=== PATIENT | male | born 1945 | race Caucasian/White ===

== ENCOUNTER 2018-11-26 07:00 | Outpatient (CLI) | payer OTHER, SELFPAY ==
[2018-11-26 08:30] LABS: Anion Gap 11.2 mmol/L (3-11); BUN 18 mg/dL (7-18); CO2 26.8 mmol/L (21.0-32.0); CREATININE 1.01 mg/dL (0.70-1.30); Calcium 9.1 mg/dL (8.5-10.1); Chloride 103 mmol/L (98-107); Glucose 116 mg/dL (70-100); Potassium 3.6 mmol/L (3.5-5.1); Sodium 141 mmol/L (136-145)
[2018-11-29 10:13] LABS: PSA, Screening 3.8 ng/ml (0-6.5)
== END 2018-11-26 07:20 ==
PROVIDERS: PCP Emergency Medicine; Visit Provider Emergency Medicine
DX: N40.0 Benign prostatic hyperplasia without lower urinary tract symptoms (principal); I10 Essential (primary) hypertension; Z12.5 Encounter for screening for malignant neoplasm of prostate
CPT/HCPCS: 36415; 80048; 84153

== ENCOUNTER 2018-12-18 08:59 | Emergency (ER) | payer OTHER, SELFPAY ==
[2018-12-18 09:02] VITALS: BP 129/79; PULSE 96; RESP 18; TEMP 36.7; O2SAT 95
--- NOTE | 2018-12-18 09:05 | ED.GENADUL_ITS ---
Discharge Plan Disposition Patient Disposition: HOME Condition: Stable Discharge Details Chief Complaint: AnimalBite Clinical Impression: Rash, Cellulitis Primary Care Provider: Samir Schroeder ED Provider: Angela Gomez Home Meds and New Rx's Prescriptions: New doxycycline hyclate 100 mg tablet 100 mg PO BID 7 Days Qty: 14 RF: 0 prednisone 20 mg tablet See Rx Instructions .ROUTE .COMPLEX Qty: 12 RF: 0 Continued sildenafil [Viagra] 100 MG tablet 100 mg PO DAILY Qty: 1 RF: 12 hydrochlorothiazide 25 mg tablet 25 mg PO DAILY Qty: 90 RF: 4 tamsulosin [Flomax] 0.4 mg capsule 0.4 mg PO HS Qty: 90 RF: 4 ibuprofen 200 MG tablet 400 mg PO TID PRNRF: 0 Discharge Instructions Instructions: Cellulitis (ED), Acute Rash (ED) Additional Instructions: Take Benadryl as needed and directed for any itching. Apply topical cortisone to the area twice daily. Take the antibiotics until finished. If you have no relief in symptoms in the next 2 days, start the oral steroids. Follow-up with your primary care doctor in 3 days for reevaluation. Return immediately to the emergency department if you develop any worsening or new concerning symptoms such as fever, increased pain, redness or swelling. Discharge Data Discharge Physician: Angela Gomez Medical Decision Making 73-year-old male who is one-week status post right forearm dog bite who presents with redness and swelling to right hand and forearm for the past 4 days. 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 Patient appears nontoxic. There are 2 areas of erythema noted to right distal extremity, 1 at base of right thumb with minimal edema and one distal medial forearm. There are 2 dog bites on the proximal forearm without any surrounding redness so it is unlikely that these are related. Negative Johanna's test. He has no significant pain, and does admit to itching, so the differential diagnosis includes contact dermatitis, allergic reaction, early cellulitis, less likely gout. Does not appear consistent with erythema migrans, no bull's-eye rash, no history of fever or embedded tick. Patient has an allergy to penicillin which causes diffuse hives. Will treat with doxycycline to cover for possible animal bite/cellulitis. Patient declined an x-ray to evaluate for possible foreign body. Advised to apply cortisone to the area twice daily. Will send with a prescription for oral steroids if there is no relief in symptoms in the next 2 days. Advised to follow-up with the primary care doctor for evaluation and to return here anytime if worse HPI General Mode of arrival: ambulatory . Date/Time Provider Initiated Documentation: 12/18/18 09:02 . Limitations to Documentation: no limitations . Information obtained by: patient . HPI Narrative: Patient is a 73-year-old male with a history of BPH, hypertension who presents for rash to his right forearm and hand for the past 4 days. Patient states he was bitten by a neighbor's dog in his right forearm 1 week ago. States the dog is up-to-date on his shots. stated that she noted a rash to his right forearm starting several days later and thought it was possibly a contact dermatitis and not due to the dog bite. He states since then it has spread to his right hand this morning. He denies any significant pain and states it is mainly itchy and feels swollen. He denies any fever, chest pain, shortness of breath, new meds or exposures, or other known possible bites. He states he had a tick bite 2 months ago which was treated for possible Lyme disease by his PCP. He states he was not tested for Lyme at that time. Related Data Home Medications Medication Instructions Recorded Confirmed ibuprofen 400 mg PO TID PRN 09/06/13 12/18/18 sildenafil [Viagra] 100 mg PO DAILY #1 tab-cap 10/20/12/18/18 hydrochlorothiazide 25 mg tablet 25 mg PO DAILY #90 tab-cap 10/06/18 12/18/18 tamsulosin 0.4 mg capsule 0.4 mg PO HS #90 tab 10/06/18 12/18/18 doxycycline hyclate 100 mg PO BID 7 Days #14 tab 12/18/18 prednisone See Rx Instructions .ROUTE 12/18/18 .COMPLEX #12 tab Previous Rx's Medication Instructions Recorded hydrochlorothiazide 25 mg tablet 25 mg PO DAILY #90 tab-cap 10/06/18 tamsulosin 0.4 mg capsule 0.4 mg PO HS #90 tab 10/06/18 doxycycline hyclate 100 mg PO BID 7 Days #14 tab 12/18/18 prednisone See Rx Instructions .ROUTE 12/18/18 .COMPLEX #12 tab Allergies Allergy/AdvReac Type Severity Reaction Status Date / Time Penicillins Allergy Unknown SKIN RASH Verified 12/18/18 09:10 metronidazole AdvReac Intermediate Nausea Verified 12/18/18 09:10 Review of Systems Review of Systems All systems reviewed & are unremarkable except as noted in HPI and below Constitutional Reports as per HPI, Denies chills and Denies fever(s) Eyes Denies blurry vision ENT Denies dizziness, Denies sore throat and Denies throat swelling Cardiovascular Denies chest pain and Denies dyspnea Respiratory Denies cough and Denies dyspnea Gastrointestinal Denies abdominal pain, Denies diarrhea and Denies vomiting Genitourinary Denies hematuria and Denies dysuria Musculoskeletal Denies back pain and Denies numbness Integumentary/Breasts Denies lesions and Reports rash Neurologic Denies dizziness, Denies focal weakness and Denies numbness Allergic/Immunologic Denies throat swelling [facility] Medical History 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 Maternal Grandfather Heart disease Maternal Grandmother Heart disease Paternal Grandmother Stroke Brother Essential hypertension Son No problems noted. Son No problems noted. Brother No problems noted. Social History Smoking/Tobacco Use Status: Never Alcohol Intake: never Drug use: Never Substance use type: does not use Caregiver/Support person: No Household members: spouse Pets and animals: Yes Pets and animals: dog(s) Sexually active: Yes Do you think of yourself as: straight/heterosexual Current gender identity: male What is your relationship status?: How often do you talk on the phone with friends or family?: three or more times per week How often do you get together with friends or relatives?: three or more times per week How often do you attend spiritism or methodist services?: decline to answer Do you belong to any clubs or organized social groups?: decline to answer Panel score (0-1 are the most socially isolated patients): 2 What type of physical activity do you participate in: walking Duration: 15-30 minutes/day Frequency: 3-4 times per week Jessica/Nondenominational: Quaker Special jessica needs: No Seatbelt use: always Drive intox or ride w/intox transit bus driver: No Do you feel safe at home: Yes Do you feel safe in your relationship?: Yes Exam Const General: cooperative, healthy appearing and no acute distress HENMT Head: normal to inspection Mouth: oral mucosae normal Eyes General: appearance normal, both eyes and all related structures Neck Neck: normal visual inspection Resp Effort & Inspection: normal respiratory effort and able to speak in complete sentences Cardio Rate: regular rate Neuro General: alert, awake and oriented x3 Motor: muscle tone normal throughout Extrem General: normal to inspection and full ROM Elbow/forearm/wrist images: 1. Irregularly shaped area of erythema with faint borders w/o induration, fluctuance or tenderness to palpation. There is minimal scaling. 2. Area of erythema and minimal edema at base of R thumb extending onto palmar surface. No tenderness, induration, fluctuance, lesions, papules. Negative Johanna test. Other: R radial and ulnar pulses intact. Cap refill < 2 sec. Psych Appearance: grossly normal Affect: normal affect
--- NOTE | 2018-12-18 10:48 | NUR.NOTE ---
Animal bite for faxed to [facility] Officer Rufino Alatorre [phone].Nursing Note:
== END 2018-12-18 09:45 | disposition home or self-care (01) ==
LOC: ER 09:34
PROVIDERS: Emergency Provider Physician Assistant; PCP Emergency Medicine
DX: L03.113 Cellulitis of right upper limb (principal); S61.451A Open bite of right hand, initial encounter; W54.0XXA Bitten by dog, initial encounter; I10 Essential (primary) hypertension
CPT/HCPCS: 99283

== ENCOUNTER → 2019-01-13 15:00 | Outpatient (BNVA) | payer OTHER, SELFPAY | PROVIDERS: PCP Emergency Medicine; Referring Provider Emergency Medicine; Visit Provider Physical Therapy Assistant | DX: Z12.11 Encounter for screening for malignant neoplasm of colon (principal) ==

== ENCOUNTER 2019-01-19 08:18 | Day surgery (SDC) | payer OTHER, SELFPAY ==
[2019-01-19 08:47] VITALS: BP 129/84; PULSE 69; RESP 16; TEMP 36.1; O2SAT 98
[2019-01-19] MEDS: Lactated Ringers 1,000 ML 80 ML IV (09:08)
--- NOTE | 2019-01-19 09:33 | W.PM.DSUDISC ---
Discharge Plan Disposition Patient Disposition: HOME Condition: Good Discharge Details Reason For Visit: Colonoscopy Attending Provider: Bebe Ann Primary Care Provider: Samir Schroeder Home Meds and New Rx's Prescriptions: Continued hydrochlorothiazide 25 mg tablet 25 mg PO DAILY Qty: 90 RF: 4 tamsulosin [Flomax] 0.4 mg capsule 0.4 mg PO HS Qty: 90 RF: 4 ibuprofen 200 MG tablet 400 mg PO TID PRNRF: 0 acetaminophen [Tylenol Extra Strength] 500 mg Tablet 1,000 mg PO Q4H PRNRF: 0 Discontinued polyethylene glycol 3350 17 gram/dose powder 238 g PO ONCE Qty: 238 RF: 0 bisacodyl [Dulcolax (bisacodyl)] 5 mg tablet,delayed release (DR/EC) 5 mg PO ONCE Qty: 4 RF: 0 Discharge Instructions Additional Instructions: Findings: Your colonoscopy showed mild diverticulosis. Make sure to take in 30 grams of fiber daily. Follow up: Consider a screening colonoscopy in 10 years depending on your overall health or sooner if symptoms arise. Please call if you develop: fevers >101.5 Nausea or Vomiting Abdominal pain that is not transient DAY SURGERY UNIT POST COLONOSCOPY INSTRUCTIONS 1. Because there will be medication in your system for the next 24 hours, you may feel a little sleepy. Your coordination will be affected. Therefore: a. Do not drive or operate dangerous equipment for 24 hours. b. Do not drink alcohol beverages for 24 hours (not even beer). c. Plan to go home and rest for the day. 2. Generally there are no restrictions on your activity after a day or so has gone by, but you may feel a bit fatigued for a few days. 3 After you arrive home you may have a light meal and return to a normal diet as you can tolerate it without feeling sick to your stomach. 4. After surgery, you may feel pain or discomfort. This should be only transient, but if it persists please contact your doctor. 5. If there are any questions regarding the findings of your procedure, please feel free to contact your doctor. 6. If you are unable to contact your doctor with a problem, contact the hospital at [phone]. 7. Continue all your regular medications unless directed otherwise. I understand the above instructions and have no questions. Signature of Patient or Responsible Adult Escort Date/Time Name of Responsible Adult Escort Signature of Nurse Date/Time Activity:: Activity as Tolerated Diet:: As Tolerated Discharge Orders Discharge Orders: Discharge Order (Routine); Ordered 01/19/19 Ordered By: Bebe Ann DS: Diagnosis Discharge Diagnosis (1) Diverticulosis: Status: Acute
[2019-01-19 10:40] VITALS: BP 134/87; PULSE 63; RESP 17; TEMP 36.4; O2SAT 96
--- NOTE | 2019-01-19 11:13 | COLE_ITS ---
REPORT OF OPERATIVE PROCEDURE DATE OF PROCEDURE January 19, 2019 PREOPERATIVE DIAGNOSIS Screening. POSTOPERATIVE DIAGNOSIS Mild diverticulosis. PROCEDURE Colonoscopy. SURGEON Bebe Ann M.D. ANESTHESIA General. INDICATIONS This is a 73-year-old man whose last screening colonoscopy was in 2006. He is asymptomatic and has no family history of colon cancer. PROCEDURE DESCRIPTION He was placed in the left Interiano position. Propofol was titrated to sedation. Digital rectal examinatio n revealed no abnormities. The scope was advanced to the cecum without difficulty. The ileocecal valv e and the appendiceal orifice were clearly identified. His prep was excellent. The scope with slowly withdrawn with no abnormalities seen within the ascending, transverse or descending colon. The sigmoi d region revealed mild diverticular change. The rectum was normal including on retroflexed view. He t olerated the procedure well and was stable to Recovery. He can consider a followup screening again in 10 years depending on his overall health or sooner if s ymptoms indicate. CC: Samir Schroeder D.O.
== END 2019-01-19 11:20 | disposition home or self-care (01) ==
PROVIDERS: PCP Emergency Medicine; Visit Provider Surgery
PROC: 0DJD8ZZ Inspection of Lower Intestinal Tract, Via Natural or Artificial Opening Endoscopic (ICD-10-PCS; CPT 45378; principal; 2019-01-19 10:00)
DX: Z12.11 Encounter for screening for malignant neoplasm of colon (principal); K57.30 Diverticulosis of large intestine without perforation or abscess without bleeding; I10 Essential (primary) hypertension
CPT/HCPCS: G0121

== ENCOUNTER 2019-11-23 18:19 | Outpatient (REF) | payer OTHER, SELFPAY ==
[2019-11-23 21:14] LABS: Anion Gap 11.2 mmol/L (3-11); BUN 23 mg/dL (7-18); CO2 27.8 mmol/L (21.0-32.0); CREATININE 1.26 mg/dL (0.70-1.30); Calcium 9.3 mg/dL (8.5-10.1); Chloride 102 mmol/L (98-107); Glucose 160 mg/dL (74-106); Potassium 3.2 mmol/L (3.5-5.1); Sodium 141 mmol/L (136-145)
== END 2019-11-23 18:39 ==
LOC: LBN 18:19
PROVIDERS: PCP Emergency Medicine; Visit Provider Emergency Medicine
DX: I10 Essential (primary) hypertension (principal); Z87.19 Personal history of other diseases of the digestive system; Z98.890 Other specified postprocedural states; Z00.00 Encounter for general adult medical examination without abnormal findings
CPT/HCPCS: 80048

== ENCOUNTER 2019-12-16 03:19 | Outpatient (CLI) | payer OTHER, SELFPAY ==
[2019-12-16 12:31] LABS: Anion Gap 9.9 mmol/L (3-11); BUN 17 mg/dL (7-18); CO2 28.1 mmol/L (21.0-32.0); CREATININE 1.17 mg/dL (0.70-1.30); Calcium 9.3 mg/dL (8.5-10.1); Chloride 103 mmol/L (98-107); Glucose 148 mg/dL (74-106); Potassium 3.5 mmol/L (3.5-5.1); Sodium 141 mmol/L (136-145)
[2019-12-16 12:48] LABS: Hemoglobin A1C 6.1 % (3.8-5.6)
== END 2019-12-16 03:39 ==
PROVIDERS: PCP Emergency Medicine; Visit Provider Emergency Medicine
DX: I10 Essential (primary) hypertension (principal); R73.09 Other abnormal glucose; R89.9 Unspecified abnormal finding in specimens from other organs, systems and tissues
CPT/HCPCS: 36415; 80048; 83036

== ENCOUNTER 2020-04-10 17:57 | Emergency (ER) | payer OTHER, SELFPAY ==
[2020-04-10 18:05] VITALS: BP 155/78; PULSE 76; RESP 16; TEMP 36.4; O2SAT 98
[2020-04-10] MEDS: Lidocaine 1% Multi-Dose 50 ML VIAL IJ (18:27)
[2020-04-10] MEDS: Lidocaine/Epinephri/Tetracaine Topical Gel 3 ML TP (18:29)
--- NOTE | 2020-04-10 18:48 | ED.GENADUL_ITS ---
Discharge Plan Disposition Patient Disposition: HOME Condition: Stable Discharge Details Clinical Impression: Laceration Primary Care Provider: Samir Schroeder ED Provider: Alejandra Anaya Home Meds and New Rx's Prescriptions: No Action aspirin [Adult Low Dose Aspirin] 81 mg tablet,delayed release (DR/EC) 81 mg PO DAILY Qty: 90 RF: 3 pravastatin 20 mg tablet 20 mg PO DAILY Qty: 90 RF: 3 hydrochlorothiazide 25 mg tablet 25 mg PO DAILY Qty: 90 RF: 4 tamsulosin [Flomax] 0.4 mg capsule 0.4 mg PO HS Qty: 90 RF: 4 ibuprofen 200 MG tablet 400 mg PO TID PRNRF: 0 acetaminophen [Tylenol Extra Strength] 500 mg Tablet 1,000 mg PO Q4H PRNRF: 0 Discharge Instructions Instructions: Laceration (ED) Additional Instructions: Keep dressing clean and dry for the first 24 to 48 hours then can remove daily wash with warm soapy water rinse completely dry well and apply thin layer of bacitracin or Neosporin ointment and cover with Band-Aid to protect Return for signs of infection including increased redness fever drainage pain Otherwise return in 7 to 10 days for suture removal Referrals: [facility] Emergency Dept. [Outside] (7 to 10 days for suture removal) Medical Decision Making updated tetanus Wound closed using 4 sutures wound edges well approximated cleansed by nursing bacitracin and nonstick dressing applied Wound care instructions given Medical Records Medical records reviewed: Yes I reviewed the patient's medical records. HPI General Date/Time Provider Initiated Documentation: 04/10/20 17:59 . Limitations to Documentation: no limitations . Information obtained by: patient . HPI Narrative: Laceration to area between left thumb and index finger approximately 3 cm's occurred while working approximately 4 hours ago. He washed the wound out with hydrogen peroxide and dressed to protect after work came for laceration repair. His last tetanus was in 2012 no other injury he has full range of motion to his full sensation distally no bleeding wound is clean Related Data Home Medications Medication Instructions Recorded Confirmed ibuprofen 400 mg PO TID PRN 09/06/13 04/10/20 acetaminophen [Tylenol Extra 1,000 mg PO Q4H PRN 01/19/19 04/10/20 Strength] hydrochlorothiazide 25 mg tablet 25 mg PO DAILY #90 tab-cap 10/25/19 04/10/20 tamsulosin 0.4 mg capsule 0.4 mg PO HS #90 tab 10/25/19 04/10/20 aspirin 81 mg tablet,delayed 81 mg PO DAILY #90 tab 01/06/20 04/10/20 release pravastatin 20 mg tablet 20 mg PO DAILY #90 tab 01/06/20 04/10/20 Previous Rx's Medication Instructions Recorded hydrochlorothiazide 25 mg tablet 25 mg PO DAILY #90 tab-cap 10/25/19 tamsulosin 0.4 mg capsule 0.4 mg PO HS #90 tab 10/25/19 aspirin 81 mg tablet,delayed 81 mg PO DAILY #90 tab 01/06/20 release pravastatin 20 mg tablet 20 mg PO DAILY #90 tab 01/06/20 Allergies Allergy/AdvReac Type Severity Reaction Status Date / Time Penicillins Allergy Unknown SKIN RASH Verified 04/10/20 18:08 metronidazole AdvReac Intermediate Nausea Verified 04/10/20 18:08 General Stated Complaint: Laceration MICHELE: 4 Review of Systems Musculoskeletal Musculoskeletal: Denies deformity, Denies joint swelling, Denies limited range of motion and Denies numbness Integumentary/Breasts Skin/Breast: Denies rash and Reports wounds (Laceration) Neurologic Neurologic: Denies numbness [facility] Medical History (Updated 04/10/20 @ 18:50 by Alejandra Anaya NP) 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 2007-NEG 01/19/19 - Diverticulosis H/O right inguinal hernia repair (10/12/13) History of tonsillectomy Family History Mother Diabetes Heart disease Father , 75 Essential hypertension Cancer Brother No problems noted. Maternal Grandfather Heart disease Maternal Grandmother , 92 Heart disease Paternal Grandmother , 65 Stroke Brother Essential hypertension Son No problems noted. Son No problems noted. Brother No problems noted. Social History (Updated 11/28/19 @ 10:12 by Lianne Sandhu) Smoking/Tobacco Use Status: Never Smoking risk assessment performed?: Yes Alcohol Intake: never Drug use: Never Substance use type: does not use Caregiver/Support person: No Household members: spouse Communication Needs: Corrective Lenses Do you need help understanding health information?: Never Pets and animals: Yes Pets and animals: dog(s) Sexually active: Yes Do you think of yourself as: straight/heterosexual Current gender identity: male What is your relationship status?: How often do you talk on the phone with friends or family?: three or more times per week How often do you get together with friends or relatives?: three or more times per week How often do you attend rastafarian or catholic services?: decline to answer Do you belong to any clubs or organized social groups?: decline to answer Panel score (0-1 are the most socially isolated patients): 2 What type of physical activity do you participate in: walking Duration: 15-30 minutes/day Frequency: 3-4 times per week Jessica/Sabianism: Christianity Special jessica needs: No Seatbelt use: always Helmet use: No Drive intox or ride w/intox city bus driver: No Do you feel safe at home: Yes Do you feel safe in your relationship?: Yes Exam Skin Rashes: rash noted Trauma: laceration Full body images: 1. 3 cm laceration Course Vital Signs Vital signs: Vital Signs Temperature 36.4 C L 04/10/20 18:05 Pulse 76 04/10/20 18:05 Respiratory Rate 16 04/10/20 18:05 Blood Pressure 155/78 H 04/10/20 18:05 Pulse Oximetry 98 04/10/20 18:05 Temperature 36.4 C L 04/10/20 18:05 Temperature Source Skin 04/10/20 18:05 Pulse 76 04/10/20 18:05 Respiratory Rate 16 04/10/20 18:05 Respiratory Effort Non-Labored 04/10/20 18:05 Blood Pressure 155/78 H 04/10/20 18:05 Blood Pressure Position Sitting 04/10/20 18:05 Pulse Oximetry 98 04/10/20 18:05 Oxygen Delivery Method Room Air 04/10/20 18:05 Oxygen Flow Rate 0 04/10/20 18:05 Pain Level 0 04/10/20 18:10 Procedures Laceration Laceration 1: Site: hand Side (If applicable): left Size (cm): 3 Description: linear and clean Depth: simple, single layer Local Anesthetic: Lidocaine 1% and other anesthetic (LET) Amount of anesthesia used (mL): 3 Pre-repair: wound explored (No debris or foreign body noted wound is clean) and irrigated extensively (Normal saline) Skin layer closed with: nylon Size (cm): 4-0 Number of sutures: 4 Technique: simple, interrupted
[2020-04-10] MEDS: Bacitracin 1 PACKET TP (19:03)
== END 2020-04-10 19:10 | disposition home or self-care (01) ==
PROVIDERS: Emergency Provider Nurse Practitioner Acute Care; PCP Emergency Medicine
DX: S61.412A Laceration without foreign body of left hand, initial encounter (principal); W26.8XXA Contact with other sharp object(s), not elsewhere classified, initial encounter; Y99.0 Civilian activity done for income or pay; I10 Essential (primary) hypertension
CPT/HCPCS: 12002; 90471

== ENCOUNTER 2020-06-15 19:14 | Outpatient (CLI) | payer MEDICARE, SELFPAY ==
--- NOTE | 2020-06-15 15:21 | DI.RAD_ITS ---
EXAM: XR KNEE RT 3V AP,LAT,[place] CLINICAL HISTORY: Pain from kneeling/falling M25.561 PAIN RT KNEE. TECHNIQUE: 2D digital imaging was performed. COMPARISON: No exams were available for comparison FINDINGS: The bones are normally mineralized. There is no evidence of fracture. No joint effusion is seen. T here is some small anterior soft tissue swelling. Chondrocalcinosis is seen. There is moderate narr owing of the medial femoral tibial joint space. The lateral femoral tibial joint space is well maint ained. No joint effusion is visible. There is some calcification at the posterior joint capsule and suprapatellar bursa. 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 DATA REPOSITORY: RADIATION DOSE DELIVERED:
== END 2020-06-15 19:15 ==
LOC: DI 06-20 19:16
PROVIDERS: PCP Emergency Medicine; Visit Provider Nurse Practitioner Family
DX: M17.11 Unilateral primary osteoarthritis, right knee (principal); M11.261 Other chondrocalcinosis, right knee
CPT/HCPCS: 73562

== ENCOUNTER 2020-08-24 13:45 | Outpatient (REF) | payer MEDICARE, SELFPAY ==
[2020-08-24 12:35] LABS: Hemoglobin A1C 5.8 % (<5.7)
[2020-08-24 12:38] LABS: Anion Gap 9.5 mmol/L (3-11); BUN 23 mg/dL (7-18); CO2 28.5 mmol/L (21.0-32.0); CREATININE 1.2 mg/dL (0.70-1.30); Calcium 9.3 mg/dL (8.5-10.1); Calculated LDL 80 mg/dL (<100); Chloride 104 mmol/L (98-107); Cholesterol 147 mg/dL (<200); Estimated GFR 59.35 (mL/min/1.73m2); Glucose 111 mg/dL (74-106); HDL Cholesterol 43 mg/dL (40-60); Potassium 3.7 mmol/L (3.5-5.1); Sodium 142 mmol/L (136-145); Triglyceride 121 mg/dL (<150)
== END 2020-08-24 13:46 | disposition home or self-care (01) ==
LOC: LBN 13:45
PROVIDERS: PCP Emergency Medicine; Visit Provider Emergency Medicine
DX: I10 Essential (primary) hypertension (principal); E11.9 Type 2 diabetes mellitus without complications
CPT/HCPCS: 80048; 80061; 83036

== ENCOUNTER 2020-09-09 15:49 | Emergency (ER) | payer MEDICARE, SELFPAY ==
[2020-09-09 15:56] VITALS: BP 120/92; PULSE 107; RESP 18; TEMP 36.7; O2SAT 100
--- NOTE | 2020-09-09 17:27 | ED.GENADUL_ITS ---
Discharge Plan Disposition Patient Disposition: HOME Condition: Stable Discharge Details Clinical Impression: Fall, Laceration of arm, left, multiple sites Primary Care Provider: Samir Schroeder ED Provider: Manolo Bertrand Home Meds and New Rx's Prescriptions: Continued aspirin [Adult Low Dose Aspirin] 81 mg tablet,delayed release (DR/EC) 81 mg PO DAILY Qty: 90 RF: 3 pravastatin 20 mg tablet 20 mg PO DAILY Qty: 90 RF: 3 hydrochlorothiazide 25 mg tablet 25 mg PO DAILY Qty: 90 RF: 4 tamsulosin [Flomax] 0.4 mg capsule 0.4 mg PO HS Qty: 90 RF: 4 ibuprofen 200 MG tablet 400 mg PO TID PRNRF: 0 acetaminophen [Tylenol Extra Strength] 500 mg Tablet 1,000 mg PO Q4H PRNRF: 0 Discharge Instructions Instructions: Laceration (ED) Additional Instructions: Laceration repaired without difficulty. Keep the area clean and dry, change antibiotic dressing daily. Take [id number] medications such as Tylenol and/or Motrin as directed for discomfort. Rest, elevate, cool compresses every 2 hours for 20 minutes. Please watch for new or worsening symptoms and return to the ER for any concerns. I recommend reaching out your primary care provider tomorrow to discuss wound reevaluation and few days. Given the location of these sutures, sutures should be removed in the next 10-14 days. Discharge Data Discharge Date/Time-TO BE ENTERED AT DEPARTURE: 09/09/20 17:50 Medical Decision Making <POLLO Robison - Last Filed: 09/10/20 12:48> 74-year-old gentleman, [id number], not anticoagulated, fell approximately 10-12 feet, road to the ladder down, subsequently landing on his feet and then onto his back. His only complaint is that of a left arm injury, 2 separate lacerations. Reports the pain is mild, 2 or 3 out of 10. Denies striking his head, numbness, tingling, weakness. Tetanus status is up-to-date. Purely given the mechanism of injury, he had a thorough head to toe evaluation, no subsequent injuries or distracting injuries were found. Case was discussed with Dr. Guan who personally evaluated the patient, please see his note. At this time there is no distracting injuries, no bony point tenderness, no obvious foreign body, I am able to evaluate to the base of the laceration, no clear indication for x-ray. Lacerations will require closure. The lacerations were closed without difficulty. Patient tolerated well. Antibiotic nonstick dressing applied. Patient has no additional questions or concerns and is comfortable discharge at this time. Standard discharge and return precautions given. Medical Records Medical records reviewed: Yes I reviewed the patient's medical records. <Paolo Guan MD - Last Filed: 09/18/20 21:58> Patient seen, examined, and discussed with POLLO Bertrand. I agree with treatment plan as discussed/documented. HPI <POLLO Robison - Last Filed: 09/10/20 12:48> General Mode of arrival: ambulatory . Date/Time Provider Initiated Documentation: 09/09/20 17:26 . Limitations to Documentation: no limitations . Information obtained by: patient . HPI Narrative: This is a 74-year-old gentleman, past medical history of BPH, hypertension, presenting to the ER today for evaluation of a left arm lacerations, he is right-hand dominant. He states that about 1 hour prior to arrival he fell from his juan j ladder approximately 10-12 feet. He states that he rode the ladder down, first landing on his feet, and then down onto his back. He denies striking his head, LOC, headache, neck pain, chest pain, shortness of breath, abdominal pain, nausea, vomiting, urinary or bowel incontinence-retention, numbness, tingling, weakness. He reports his only injury is that of 2 lacerations to his left arm, he is unsure exactly what he struck but states that there was no tools or sharp objects on the ground underneath him. He reports his pain is a 2 or 3 out of 10. Denies any foreign body. He states that he thoroughly cleaned that his symptoms occurred. Tetanus status is up-to-date. He is not anticoagulated. Related Data Home Medications Medication Instructions Recorded Confirmed ibuprofen 400 mg PO TID PRN 09/06/13 09/09/20 acetaminophen [Tylenol Extra 1,000 mg PO Q4H PRN 01/19/19 09/09/20 Strength] hydrochlorothiazide 25 mg tablet 25 mg PO DAILY #90 tab-cap 10/25/19 09/09/20 tamsulosin 0.4 mg capsule 0.4 mg PO HS #90 tab 10/25/19 09/09/20 aspirin 81 mg tablet,delayed 81 mg PO DAILY #90 tab 01/06/20 09/09/20 release pravastatin 20 mg tablet 20 mg PO DAILY #90 tab 01/06/20 09/09/20 Previous Rx's Medication Instructions Recorded hydrochlorothiazide 25 mg tablet 25 mg PO DAILY #90 tab-cap 10/25/19 tamsulosin 0.4 mg capsule 0.4 mg PO HS #90 tab 10/25/19 aspirin 81 mg tablet,delayed 81 mg PO DAILY #90 tab 01/06/20 release pravastatin 20 mg tablet 20 mg PO DAILY #90 tab 01/06/20 Allergies Allergy/AdvReac Type Severity Reaction Status Date / Time Penicillins Allergy Unknown SKIN RASH Verified 09/09/20 16:02 metronidazole AdvReac Intermediate Nausea Verified 09/09/20 16:02 General Stated Complaint: Trauma MICHELE: 3 Review of Systems <POLLO Robison - Last Filed: 09/10/20 12:48> Constitutional Constitutional: Denies fever(s), Denies headache(s) and Denies weakness Eyes Eyes: Denies change in vision ENT Ears, Nose, Mouth, and Throat: Denies headache(s) and Denies neck pain Cardiovascular Cardiovascular: Denies chest pain and Denies dyspnea Respiratory Respiratory: Denies cough and Denies dyspnea Gastrointestinal Gastrointestinal: Denies abdominal pain, Denies fecal incontinence, Denies nausea and Denies vomiting Genitourinary Genitourinary: Denies urinary hesitancy and Denies urinary incontinence Musculoskeletal Musculoskeletal: Denies back pain, Denies neck pain, Denies numbness and Denies tingling Integumentary/Breasts Skin/Breast: Denies rash Neurologic Neurologic: Denies headache(s), Denies numbness, Denies tingling and Denies weakness Hematologic/Lymphatic Hematologic/Lymphatic: Denies easy bleeding and Denies easy bruising PFSH <POLLO Robison - Last Filed: 09/10/20 12:48> Medical History 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 2007-NEG 01/19/19 - Diverticulosis H/O right inguinal hernia repair (10/12/13) History of tonsillectomy Family History Mother Diabetes Heart disease Father , 75 Essential hypertension Cancer Brother No problems noted. Maternal Grandfather Heart disease Maternal Grandmother , 92 Heart disease Paternal Grandmother , 65 Stroke Brother Essential hypertension Son No problems noted. Son No problems noted. Brother No problems noted. Social History Smoking/Tobacco Use Status: Never Smoking risk assessment performed?: Yes Alcohol Intake: never Drug use: Never Substance use type: does not use Caregiver/Support person: No Household members: spouse Communication Needs: Corrective Lenses Do you need help understanding health information?: Never Pets and animals: Yes Pets and animals: dog(s) Sexually active: Yes Do you think of yourself as: straight/heterosexual Current gender identity: male What is your relationship status?: How often do you talk on the phone with friends or family?: three or more times per week How often do you get together with friends or relatives?: three or more times per week How often do you attend restorationism or mandaeism services?: decline to answer Do you belong to any clubs or organized social groups?: decline to answer Panel score (0-1 are the most socially isolated patients): 2 What type of physical activity do you participate in: walking Duration: 15-30 minutes/day Frequency: 3-4 times per week Jessica/Sabianist: Orthodoxy Special jessica needs: No Seatbelt use: always Helmet use: No Drive intox 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 Do you feel safe at home: Yes Do you feel safe in your relationship?: Yes Exam <POLLO Robison - Last Filed: 09/10/20 12:48> Const General: cooperative, healthy appearing, comfortable and no acute distress Orientation: alert, awake and oriented x3 [facility] Head: normal to inspection, normocephalic and atraumatic Face and sinus: normal facial exam Mouth: moist mucous membranes Eyes General: appearance normal, both eyes and all related structures Alignment and Position: alignment normal Periorbital: periorbital findings normal Eyelids: eyelids normal Conjunctivae: conjunctivae normal Sclera: sclerae normal Cornea: corneas normal Pupils: PERRL EOM: EOM intact bilaterally Direct ophthalmoscopy: normal light reflex Neck Neck: normal visual inspection, full ROM, trachea midline, supple and nontender Chest Chest: normal inspection of the chest and normal palpation of entire chest wall Resp Effort & Inspection: normal respiratory effort and able to speak in complete sentences Auscultation: clear to auscultation bilaterally Cardio Rate: regular rate Rhythm: regular rhythm GI Inspection: normal to inspection Palpation: soft and nontender Back/Spine/Pelvis Back: no CVA tenderness and No back tenderness Skin General skin exam: no rashes or lesions noted Neuro General: patient alert, patient awake, patient oriented x3, moves all extremities and no focal motor deficits Cranial Nerves: CN's II-XI intact bilaterally Cognition: normal cognition Speech: speech normal Gait: normal gait Motor: muscle tone normal throughout Sensory Exam: no sensory deficits noted Extrem General: full ROM and capillary refill normal Right upper extremity: normal to inspection, full ROM and normal capillary refill Left upper extremity: full ROM, normal capillary refill, shoulder/upper arm Details: inspection abnormal, axillary nerve sensory function normal and normal ROM; no tenderness and no swelling, wrist Details: normal to inspection and normal ROM; no tenderness and no swelling and hand Details: normal to inspection, normal capillary refill, neuromotor exam normal, neurosensory exam normal and tendon exam normal Right lower extremity: normal to inspection, full ROM and normal capillary refill Left lower extremity: normal to inspection, full ROM and normal capillary refill Psych Appearance: grossly normal Mental Status: mental status grossly normal Course <POLLO Robison - Last Filed: 09/10/20 12:48> Vital Signs Vital signs: Vital Signs Temperature 36.7 C 09/09/20 15:56 Pulse 107 H 09/09/20 15:56 Respiratory Rate 18 09/09/20 15:56 Blood Pressure 120/92 H 09/09/20 15:56 Pulse Oximetry 100 05/09/21 15:56 Temperature 36.7 C 09/09/20 15:56 Temperature Source Skin 09/09/20 15:56 Pulse 107 H 09/09/20 15:56 Respiratory Rate 18 09/09/20 15:56 Respiratory Effort Non-Labored 09/09/20 15:59 Blood Pressure 120/92 H 09/09/20 15:56 Blood Pressure Position Sitting 09/09/20 15:56 Pulse Oximetry 100 09/09/20 15:56 Oxygen Delivery Method Room Air 09/09/20 15:56 Oxygen Flow Rate 0 09/09/20 15:56 Pain Level 1 09/09/20 15:56 Procedures <POLLO Robison - Last Filed: 09/10/20 12:48> Laceration Laceration 1: Site: upper extremity Side (If applicable): left Size (cm): 3 Description: other (Semicircular) Depth: simple, single layer Local Anesthetic: Lidocaine 1%, Bupivicaine 0.5%, with Epi and other anesthetic ([id number] mixture) Amount of anesthesia used (mL): 5 Pre-repair: wound explored, irrigated extensively and deep structures intact Skin layer closed with: nylon Size (cm): 4-0 Number of sutures: 6 Technique: simple, interrupted Laceration 2: Site: upper extremity Side (If applicable): left Size (cm): 4.5 Description: irregular Depth: simple, single layer Local Anesthetic: Lidocaine 1%, Bupivicaine 0.5%, with Epi and other anesthetic (Pnve-[id number]-[id number] mixture) Amount of anesthesia used (mL): 5 Pre-repair: wound explored, irrigated extensively and deep structures intact Skin layer closed with: nylon Size (cm): 4-0 Number of sutures: 9 Technique: simple, interrupted
== END 2020-09-09 17:50 | disposition home or self-care (01) ==
PROVIDERS: Emergency Provider Physician Assistant; PCP Emergency Medicine
DX: S51.812A Laceration without foreign body of left forearm, initial encounter (principal); W13.2XXA Fall from, out of or through roof, initial encounter
CPT/HCPCS: 12002

== ENCOUNTER 2020-09-19 16:42 | Emergency (ER) | payer MEDICARE, SELFPAY ==
[2020-09-19 16:54] VITALS: BP 118/73; PULSE 88; RESP 16; TEMP 36.6; O2SAT 95
--- NOTE | 2020-09-19 17:10 | ED.GENADUL_ITS ---
Discharge Plan Disposition Patient Disposition: HOME Condition: Good Discharge Details Clinical Impression: Encounter for removal of sutures Primary Care Provider: Samir Schroeder ED Provider: Michelle Boyer Home Meds and New Rx's Prescriptions: Continued aspirin [Adult Low Dose Aspirin] 81 mg tablet,delayed release (DR/EC) 81 mg PO DAILY Qty: 90 RF: 3 pravastatin 20 mg tablet 20 mg PO DAILY Qty: 90 RF: 3 hydrochlorothiazide 25 mg tablet 25 mg PO DAILY Qty: 90 RF: 4 tamsulosin [Flomax] 0.4 mg capsule 0.4 mg PO HS Qty: 90 RF: 4 ibuprofen 200 MG tablet 400 mg PO TID PRNRF: 0 acetaminophen [Tylenol Extra Strength] 500 mg Tablet 1,000 mg PO Q4H PRNRF: 0 Discharge Instructions Instructions: Stitches Removal (ED) Additional Instructions: Your wounds appear to be healing well with no evidence of infection. Please keep the wound clean, dry, covered. Monitor for signs infection including redness, warmth, drainage, increased pain, fever/chills. If you develop these or the new/worsening symptoms please seek care urgently once again. Otherwise, please follow-up with your primary care as needed. You suffered to lacerations initially to the left elbow. One measured 3 cm and was closed with #6 simple interrupted stitches. Other laceration was 4.5 cm in length and closed with #9 simple interrupted sutures. Referrals: Samir Schroeder, [Primary Care Provider] - Discharge Data Discharge Date/Time-TO BE ENTERED AT DEPARTURE: 09/19/20 17:34 Medical Decision Making Patient is a pleasant 74-year-old gentleman presenting today with chief complaint of suture removal. Patient was seen here 10 days ago at which time he had a total #15 stitches placed tween the 2 lacerations on the posterior aspect of his left elbow. Patient denies any pain at the laceration site. He denies any fevers or chills. Has been following wound care instructions. On exam, patient appears nontoxic. He has 2 lacerations on the posterior aspect of his elbow. These do appear to be healing well with no evidence of infection. Wound edges well approximated. Patient I discussed her/benefits of suture removal. He voiced understanding wish to proceed. #15 simple interrupted stitches were removed by myself without complication. Tolerated this well. Continued wound care was discussed at length with the patient. Return precautions were discussed, in particular signs of infection. All of his questions and concerns were addressed and he is in agreement this plan. HPI General Mode of arrival: ambulatory . Date/Time Provider Initiated Documentation: 09/19/20 17:09 . Limitations to Documentation: no limitations . Information obtained by: patient, RN notes reviewed and old records reviewed . History of Present Illness 74 year old M presents to the emergency department with the chief complaint of suture removal, described as mild (no pain), and is localized to the left and upper extremity. Patient reports no radiation. Patient started experiencing this day(s) and it has been now resolved. No relieving factors improve symptom(s), No exacerbating factors reported . Patient notes no other symptoms.. Patient did receive the following treatments prior to arrival, none Related Data Home Medications Medication Instructions Recorded Confirmed ibuprofen 400 mg PO TID PRN 09/06/13 09/19/20 acetaminophen [Tylenol Extra 1,000 mg PO Q4H PRN 01/19/19 09/19/20 Strength] hydrochlorothiazide 25 mg tablet 25 mg PO DAILY #90 tab-cap 10/25/19 09/19/20 tamsulosin 0.4 mg capsule 0.4 mg PO HS #90 tab 10/25/19 09/19/20 aspirin 81 mg tablet,delayed 81 mg PO DAILY #90 tab 01/06/20 09/19/20 release pravastatin 20 mg tablet 20 mg PO DAILY #90 tab 01/06/20 09/19/20 Previous Rx's Medication Instructions Recorded hydrochlorothiazide 25 mg tablet 25 mg PO DAILY #90 tab-cap 10/25/19 tamsulosin 0.4 mg capsule 0.4 mg PO HS #90 tab 10/25/19 aspirin 81 mg tablet,delayed 81 mg PO DAILY #90 tab 01/06/20 release pravastatin 20 mg tablet 20 mg PO DAILY #90 tab 01/06/20 Allergies Allergy/AdvReac Type Severity Reaction Status Date / Time Penicillins Allergy Unknown SKIN RASH Verified 09/19/20 16:58 metronidazole AdvReac Intermediate Nausea Verified 09/19/20 16:58 General Stated Complaint: SutureRem MICHLEE: 5 Review of Systems Constitutional Constitutional: Reports as per HPI, Denies chills, Denies fever(s) and Denies weakness Musculoskeletal Musculoskeletal: Reports as per HPI and Denies tingling Integumentary/Breasts Skin/Breast: Reports as per HPI Neurologic Neurologic: Denies sensory deficit, Denies tingling and Denies weakness [facility] Medical History 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 2006-NEG 01/19/19 - Diverticulosis H/O right inguinal hernia repair (10/12/13) History of tonsillectomy Family History Mother Diabetes Heart disease Father , 75 Essential hypertension Cancer Brother No problems noted. Maternal Grandfather Heart disease Maternal Grandmother , 92 Heart disease Paternal Grandmother , 65 Stroke Brother Essential hypertension Son No problems noted. Son No problems noted. Brother No problems noted. Social History Smoking/Tobacco Use Status: Never Smoking risk assessment performed?: Yes Alcohol Intake: never Drug use: Never Substance use type: does not use Caregiver/Support person: No Household members: spouse Communication Needs: Corrective Lenses Do you need help understanding health information?: Never Pets and animals: Yes Pets and animals: dog(s) Sexually active: Yes Do you think of yourself as: straight/heterosexual Current gender identity: male What is your relationship status?: How often do you talk on the phone with friends or family?: three or more times per week How often do you get together with friends or relatives?: three or more times per week How often do you attend congregation or anabaptism services?: decline to answer Do you belong to any clubs or organized social groups?: decline to answer Panel score (0-1 are the most socially isolated patients): 2 What type of physical activity do you participate in: walking Duration: 15-30 minutes/day Frequency: 3-4 times per week Jessica/Taoist: Orthodoxy Special jessica needs: No Seatbelt use: always Helmet use: No Drive 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 Do you feel safe at home: Yes Do you feel safe in your relationship?: Yes Exam Const General: cooperative, healthy appearing, comfortable, no acute distress and well developed Nutritional Appearance: average body habitus and well nourished Orientation: alert and awake Resp Effort & Inspection: normal respiratory effort, able to speak in complete sentences and no respiratory distress Cardio Rate: regular rate Rhythm: regular rhythm Skin Trauma: laceration (2 lacerations, both closed and healing well, posterior left proximal forear) Neuro General: patient alert and patient awake Cognition: normal cognition Speech: speech normal Gait: normal gait Motor: muscle tone normal throughout Extrem Elbow/forearm/wrist images: 1. 2. irregularly shaped lacerations that appear to be healing well. No surrounding erythema, warmth, drainage. Wound edges well approximated. Psych Appearance: grossly normal and well kempt Mental Status: mental status grossly normal Speech and Movement: speech and movement normal Course Vital Signs Vital signs: Vital Signs Temperature 36.6 C 09/19/20 16:54 Pulse 88 09/19/20 16:54 Respiratory Rate 16 09/19/20 16:54 Blood Pressure 118/73 09/19/20 16:54 Pulse Oximetry 95 09/19/20 16:54 Temperature 36.6 C 09/19/20 16:54 Temperature Source Skin 09/19/20 16:54 Pulse 88 09/19/20 16:54 Respiratory Rate 16 09/19/20 16:54 Respiratory Effort Non-Labored 09/19/20 16:54 Blood Pressure 118/73 09/19/20 16:54 Blood Pressure Position Sitting 09/19/20 16:54 Pulse Oximetry 95 09/19/20 16:54 Pain Level 0 09/19/20 16:54
--- NOTE | 2020-09-19 17:32 | NUR.NOTE ---
benzo and steri strips applied to lacs after provider removed sutures
== END 2020-09-19 17:34 | disposition home or self-care (01) ==
PROVIDERS: Emergency Provider Physician Assistant; PCP Emergency Medicine
DX: S51.812D Laceration without foreign body of left forearm, subsequent encounter (principal); S51.012D Laceration without foreign body of left elbow, subsequent encounter; W11.XXXD Fall on and from ladder, subsequent encounter; Z48.02 Encounter for removal of sutures

== ENCOUNTER 2022-03-14 01:53 | Outpatient (CLI) | payer MEDICARE, SELFPAY ==
[2022-03-14 07:47] LABS: Abs Immature Grans 0.01 10^3/uL (0.0-0.06); Absolute Basophil Count 0.04 10^3/uL (0.0-0.2); Absolute Eosinophil Count 0.18 10^3/uL (0.0-0.7); Absolute Lymphocyte Count 1.75 10^3/uL (1.2-3.4); Absolute Monocyte Count 0.55 10^3/uL (0.1-0.8); Absolute Neutrophil Count 4.02 10^3/uL (1.2-6.7); Basophils % 0.6; Eosinophils % 2.7; HCT 47.8 % (40.0-50.0); HGB 15.6 g/dL (13.5-17.5); Immature Grans % 0.2; Lymphocytes % 26.7; MCH 28.8 pg (27.0-33.0); MCHC 32.6 % (32.0-36.0); MCV 88 fL (80-95); MPV 9.7 fL (8.0-11.0); Monocytes % 8.4; Neutrophils % 61.4; Platelet Count 252 10^3/uL (130-400); RBC 5.41 10^6/uL (4.36-5.78); RDW 12.8 % (11.8-14.1); RDW-SD 41.6 fL; WBC 6.55 10^3/uL (4.4-10.8)
[2022-03-14 08:47] LABS: Anion Gap 6.5 mmol/L (3-11); BUN 19 mg/dL (7-18); CO2 30.5 mmol/L (21.0-32.0); CREATININE 1.2 mg/dL (0.70-1.30); Calculated LDL 91 mg/dL (<100); Chloride 102 mmol/L (98-107); Cholesterol 157 mg/dL (<200); Estimated GFR 63.07 (mL/min/1.73m2); Glucose 127 mg/dL (74-106); HDL Cholesterol 52 mg/dL (40-60); Potassium 3.2 mmol/L (3.5-5.1); Sodium 139 mmol/L (136-145); Triglyceride 70 mg/dL (<150)
[2022-03-14 09:15] LABS: Hemoglobin A1C 6.2 % (<5.7)
[2022-03-16 21:47] LABS: Anaplasma phagocytophilum Negative (Negative); B. miyamotoi PCR Negative (Negative); Babesia divergens/MO-1 Negative (Negative); Babesia duncani Negative (Negative); Babesia microti Negative (Negative); Ehrlichia chaffeensis Negative (Negative); Ehrlichia ewingii/canis Negative (Negative); Ehrlichia muris eauclairensis Negative (Negative)
[2022-03-17 09:55] LABS: Lyme Ab w Rflx to Lyme Confirm Negative (Negative)
== END 2022-03-14 01:54 | disposition home or self-care (01) ==
LOC: LBO 01:53
PROVIDERS: Physician Assistant; PCP Nurse Practitioner Family; Visit Provider Nurse Practitioner
DX: E78.5 Hyperlipidemia, unspecified (principal); I10 Essential (primary) hypertension; R73.03 Prediabetes; W57.XXXA Bitten or stung by nonvenomous insect and other nonvenomous arthropods, initial encounter; T14.8XXA Other injury of unspecified body region, initial encounter
CPT/HCPCS: 36415; 80048; 80061; 87798; 83036; 85025; 86618

== ENCOUNTER 2022-04-17 03:01 | Outpatient (CLI) | payer MEDICARE, SELFPAY ==
[2022-04-17 07:46] LABS: Anion Gap 6.8 mmol/L (3-11); BUN 21 mg/dL (7-18); CO2 29.2 mmol/L (21.0-32.0); CREATININE 1.3 mg/dL (0.70-1.30); Calcium 8.9 mg/dL (8.5-10.1); Chloride 101 mmol/L (98-107); Estimated GFR 57.29 (mL/min/1.73m2); Glucose 141 mg/dL (74-106); Potassium 3.3 mmol/L (3.5-5.1); Sodium 137 mmol/L (136-145)
== END 2022-04-17 03:02 | disposition home or self-care (01) ==
LOC: LBO 03:01
PROVIDERS: PCP Nurse Practitioner Family; Visit Provider Nurse Practitioner Family
DX: E87.6 Hypokalemia (principal)
CPT/HCPCS: 36415; 80048

== ENCOUNTER 2022-11-12 10:02 | Outpatient (REF) | payer MEDICARE, SELFPAY ==
[2022-11-12 14:08] LABS: COMMENT (LAB VIEW ONLY) 110.56 mg/dL; Microalb ug/mg Crea 23.8 ug/mg Cr
== END 2022-11-12 10:03 | disposition home or self-care (01) ==
LOC: LBN 10:02
PROVIDERS: PCP Nurse Practitioner Family; Visit Provider Nurse Practitioner Family
DX: E11.9 Type 2 diabetes mellitus without complications (principal)
CPT/HCPCS: 82043; 82570

== ENCOUNTER 2022-12-15 09:17 | Outpatient (CLI) | payer MEDICARE, SELFPAY ==
[2022-12-15 12:30] LABS: Anion Gap 8.9 mmol/L (3-11); BUN 18 mg/dL (7-18); CO2 28.1 mmol/L (21.0-32.0); CREATININE 1.1 mg/dL (0.70-1.30); Chloride 102 mmol/L (98-107); Estimated GFR 69.57 (mL/min/1.73m2); Glucose 173 mg/dL (74-106); Potassium 3.6 mmol/L (3.5-5.1); Sodium 139 mmol/L (136-145)
== END 2022-12-15 09:18 | disposition home or self-care (01) ==
LOC: LOS 09:18
PROVIDERS: PCP Nurse Practitioner Family; Referring Provider Nurse Practitioner Family; Visit Provider Nurse Practitioner Family
DX: E11.9 Type 2 diabetes mellitus without complications
CPT/HCPCS: 36415; 80048

== ENCOUNTER 2023-05-08 01:19 | Outpatient (CLI) | payer MEDICARE, SELFPAY ==
[2023-05-08 12:34] LABS: Hemoglobin A1C 6.6 % (<5.7)
== END 2023-05-08 01:20 | disposition home or self-care (01) ==
LOC: LOS 01:19
PROVIDERS: PCP Nurse Practitioner Family; Visit Provider Nurse Practitioner Family
DX: R73.03 Prediabetes (principal)
CPT/HCPCS: 36415; 83036

== ENCOUNTER 2023-10-22 12:57 | Emergency (ER) | payer MEDICARE, SELFPAY ==
[2023-10-22] VITALS (12 sets, daily range): BP systolic 122–137; BP diastolic 83–85; PULSE 68–100; RESP 12–20; TEMP 36.5; O2SAT 93–97
--- NOTE | 2023-10-22 12:45 | RT.EKG_ITS ---
APPROVED REPORT Exam: Resting ECG Reason for Exam: chest pain Patient Location: E HR:92 bpm ECG Measurements Heart Rate 92 AXIS TN 156 P 47 QRSd 85 QRS -19 QT 379 T 20 QTc 471 Conclusion Sinus rhythm...normal P axis, V-rate 60- 99
[2023-10-22 13:25] LABS: Abs Immature Grans 0.02 10^3/uL (0.0-0.06); Absolute Basophil Count 0.03 10^3/uL (0.0-0.2); Absolute Monocyte Count 0.51 10^3/uL (0.1-0.8); Absolute Neutrophil Count 4.54 10^3/uL (1.2-6.7); Basophils % 0.4 %; Eosinophils % 2.8 %; HCT 45.6 % (40.0-50.0); HGB 15.6 g/dL (13.5-17.5); Immature Grans % 0.3 %; Lymphocytes % 26.4 %; MCH 29.5 pg (27.0-33.0); MCHC 34.2 % (32.0-36.0); MCV 86 fL (80-95); MPV 9.4 fL (8.0-11.0); Monocytes % 7.1 %; Platelet Count 253 10^3/uL (130-400); RBC 5.29 10^6/uL (4.36-5.78); RDW 12.4 % (11.8-14.1); RDW-SD 39.2 fL
--- NOTE | 2023-10-22 13:30 | DI.RAD_ITS ---
Exam(s) XR CHEST 2V PA LATERAL EXAM: XR CHEST 2V PA LATERAL CLINICAL HISTORY: left sided anterior chest pain TECHNIQUE: 2D digital imaging was performed. Two views. COMPARISON: No exams were available for comparison FINDINGS: HEART: Normal size. Aorta: Not dilated. Tortuous. PULMONARY VASCULATURE: Normal. LUNGS: Clear. PLEURAL SPACE: No pleural effusion or pneumothorax. BONE:Unremarkable for age. Soft tissues: Unremarkable. IMPRESSION: No acute abnormality. DATA REPOSITORY: RADIATION DOSE DELIVERED:
--- NOTE | 2023-10-22 13:40 | W.ED.GENAD ---
Discharge Plan Disposition Patient Disposition: Home Condition: Stable Discharge Details Clinical Impression: Chest pain Primary Care Provider: Brady Lynn ED Provider: Lizanrdo Bergman Home Meds and New Rx's Prescriptions: Continued aspirin [Adult Low Dose Aspirin] 81 mg tablet,delayed release (DR/EC) 81 mg PO DAILY Qty: 90 3RF nitroglycerin 0.4 mg tablet, sublingual 0.4 mg sublingual Q5M PRN (Reason: chest pain) Qty: 14 0RF Rx Instructions: Take 1 tab at onset of symptoms, repeat every 5 minutes x 3 doses if chest pain persists pravastatin 20 mg tablet 20 mg PO DAILY Qty: 90 12RF metformin 500 mg tablet 500 mg PO DAILY Qty: 90 4RF hydrochlorothiazide 25 mg tablet 25 mg PO DAILY Qty: 90 3RF tamsulosin [Flomax] 0.4 mg capsule 0.4 mg PO HS Qty: 90 3RF Discharge Instructions Additional Instructions: Your workup today did not show any concerning findings I would recommend following up with your outpatient echo and stress test as your primary care provider ordered If you feel more ill or have new symptoms such as difficulty breathing or severe worsening of your chest pain return to the emergency department HPI General Mode of arrival: ambulatory. Date/Time Provider Initiated Documentation: 10/22/23 13:03. Limitations to Documentation: no limitations. Information obtained by: patient. History of Present Illness 77 year old M presents to the emergency department with the chief complaint of left sided chest pain, described as mild, Quality is described as aching, Patient started experiencing this week(s) (1) and it has been constant. No relieving factors improve symptom(s), No exacerbating factors reported . Patient notes no other symptoms.; denies fever/chills and shortness of breath. Patient did receive the following treatments prior to arrival, none Related Data Home Medications Medication Instructions Recorded Confirmed aspirin 81 mg tablet,delayed 81 mg PO DAILY #90 tabs 01/06/20 10/22/23 release (Adult Low Dose Aspirin) hydrochlorothiazide 25 mg tablet 25 mg PO DAILY #90 tab-caps 08/18/23 10/22/23 tamsulosin 0.4 mg capsule (Flomax) 0.4 mg PO HS #90 tabs 09/18/23 10/22/23 metformin 500 mg tablet 500 mg PO DAILY #90 tabs 10/22/23 10/22/23 nitroglycerin 0.4 mg sublingual 0.4 mg sublingual Q5M PRN chest 10/22/23 10/22/23 tablet pain #14 tabs pravastatin 20 mg tablet 20 mg PO DAILY #90 tabs 10/22/23 10/22/23 Previous Rx's Medication Instructions Recorded aspirin 81 mg tablet,delayed 81 mg PO DAILY #90 tabs 01/06/20 release (Adult Low Dose Aspirin) hydrochlorothiazide 25 mg tablet 25 mg PO DAILY #90 tab-caps 08/18/23 tamsulosin 0.4 mg capsule (Flomax) 0.4 mg PO HS #90 tabs 09/18/23 metformin 500 mg tablet 500 mg PO DAILY #90 tabs 10/22/23 nitroglycerin 0.4 mg sublingual 0.4 mg sublingual Q5M PRN chest 10/22/23 tablet pain #14 tabs pravastatin 20 mg tablet 20 mg PO DAILY #90 tabs 10/22/23 Allergies Allergy/AdvReac Type Severity Reaction Status Date / Time Penicillins Allergy Unknown SKIN RASH Verified 10/22/23 13:36 metronidazole AdvReac Intermediate Nausea Verified 10/22/23 13:36 General Stated Complaint: Chest Pain MICHELE: 3 Review of Systems All systems reviewed & are unremarkable except as noted in HPI and below Constitutional Constitutional: Denies chills, Denies fever(s) and Denies weakness Cardiovascular Cardiovascular: Reports chest pain and Denies dyspnea Respiratory Respiratory: Denies cough and Denies dyspnea Gastrointestinal Gastrointestinal: Denies abdominal pain, Denies nausea and Denies vomiting Musculoskeletal Musculoskeletal: Denies joint swelling Neurologic Neurologic: Denies weakness Exam Const General: no acute distress Orientation: alert [facility] Head: normal to inspection Ears: external ears normal General nose exam: external nose normal Mouth: moist mucous membranes Eyes General: appearance normal, both eyes and all related structures Neck Neck: normal visual inspection Resp Effort & Inspection: normal respiratory effort and able to speak in complete sentences Auscultation: clear to auscultation bilaterally Cardio Rate: regular rate Heart Sounds: no murmurs GI Palpation: soft and nontender Skin General skin exam: no rashes or lesions noted Neuro General: patient alert and patient oriented x3 Extrem General: normal to inspection Psych Mental Status: mental status grossly normal Course Vital Signs Vital signs: Vital Signs Temperature 36.5 C 10/22/23 12:59 Pulse 97 H 10/22/23 12:59 Respiratory Rate 18 10/22/23 12:59 Blood Pressure 137/83 10/22/23 12:59 Pulse Oximetry 97 10/22/23 12:59 Temperature 36.5 C 10/22/23 12:59 Temperature Source Temporal Artery Scan 10/22/23 12:59 Pulse 97 H 10/22/23 12:59 Respiratory Rate 13 10/22/23 13:33 Respiratory Effort Normal 10/22/23 13:33 Blood Pressure 137/83 10/22/23 12:59 Blood Pressure Position Sitting 10/22/23 12:59 Pulse Oximetry 97 10/22/23 12:59 Oxygen Delivery Method Room Air 10/22/23 12:59 Oxygen Flow Rate 0 10/22/23 12:59 Pain Level 4 10/22/23 12:59 Lab/Test Results Lab/Test Results: Laboratory Tests Range/Units 10/22/23 13:12 WBC (4.4-10.8) 10^3/uL 7.20 RBC (4.36-5.78) 10^6/uL 5.29 Hgb (13.5-17.5) g/dL 15.6 Hct (40.0-50.0) % 45.6 MCV (80-95) fL 86 MCH (27.0-33.0) pg 29.5 MCHC (32.0-36.0) % 34.2 RDW (11.8-14.1) % 12.4 Plt Count (130-400) 10^3/uL 253 MPV (8.0-11.0) fL 9.4 Immature Gran % % 0.3 Neutrophils % % 63.0 Lymphocytes % % 26.4 Monocytes % % 7.1 Eosinophils % % 2.8 Basophils % % 0.4 Nucleated RBC % (0.0-0.3) % 0.0 Absolute Neutrophils (1.2-6.7) 10^3/uL 4.54 Absolute Lymphocytes (1.2-3.4) 10^3/uL 1.90 Absolute Monocytes (0.1-0.8) 10^3/uL 0.51 Absolute Eosinophils (0.0-0.7) 10^3/uL 0.20 Absolute Basophils (0.0-0.2) 10^3/uL 0.03 Medical Decision Making 77-year-old male with a history of diabetes, hypertension, hyperlipidemia denies a history of smoking comes in with 1 week of left-sided anterior chest achiness. He denies any pain with exertion, diaphoresis, nausea vomiting. He arrives stable and appears well in no distress. He has no JVD, clear lungs, soft nontender abdomen. No leg swelling or calf tenderness. Equal peripheral pulses. He localizes the pain to the left anterior chest just below the nipple and has no visible or palpable deformities and has reproducible tenderness in this area. Suspect chest wall pain but given his age and risk factors will obtain a troponin, CBC, CMP and a chest x-ray. He has no tachycardia or hypoxia to suggest PE and no tearing back pain to suggest dissection Patient's labs unremarkable, x-ray on my read is no acute findings. Given he had a week of symptoms do not feel delta troponin would be of benefit. He has an outpatient stress test and echo ordered, discussed being admitted for observation and possibly having these test done as an inpatient versus continued outpatient management he prefers to have this done as an outpatient. Given his pain is reproducible feel this is reasonable, he is stable for discharge and will follow-up with his PCP for his outpatient studies and return precautions given Differential Diagnosis Differential Diagnosis: chest wall pain, nstemi Imaging Data Radiologic Study: Attestation: I personally reviewed and interpreted this imaging study as follows: Imaging: X-Ray My impression: No acute findings Lab Data Lab results reviewed: Yes I reviewed the patient's lab results. 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 (Acute) History of appendectomy (Acute) H/O right inguinal hernia repair (Acute 10/12/13) Microhematuria (Acute 10/12/13) Raised prostate specific antigen (Acute) History of rheumatic fever (Acute) Hemorrhoid (Acute 10/12/13) Hearing impairment (Acute 10/20/14) Erectile disorder, generalized, mild (Acute 10/20/14) BPH without urinary obstruction (Acute) Medical History (Updated 10/22/23 @ 14:51 by Lizandro Bergman MD) Encounter for removal of sutures Laceration of arm, left, multiple sites Fall Right knee pain Prediabetes Dog bite Hypertension (10/11/13) Surgical History History of tonsillectomy Colonoscopy - MAC 01/19/19, Dr Bebe Ann, diverticulitis, repeat 10 years. 2007-NEG 01/19/19 - Diverticulosis Appendectomy Family History Mother Diabetes Heart disease Father , 75 Essential hypertension Cancer Brother No problems noted. Maternal Grandfather Heart disease Maternal Grandmother , 92 Heart disease Paternal Grandmother , 65 Stroke Brother Essential hypertension Son No problems noted. Son No problems noted. Brother No problems noted. Social History Smoking/Tobacco Use Status: Never Second Hand Exposure: Yes Smoking risk assessment performed?: Yes Alcohol Intake: never Drug use: Never Substance use type: does not use Caregiver/Support person: No Household members: spouse Communication Needs: Corrective Lenses Do you need help understanding health information?: Never Pets and animals: Yes Pets and animals: dog(s) Sexually active: Yes Do you think of yourself as: straight/heterosexual Current gender identity: male What is your relationship status?: How often do you talk on the phone with friends or family?: three or more times per week How often do you get together with friends or relatives?: three or more times per week How often do you attend anabaptist or latter-day services?: decline to answer Do you belong to any clubs or organized social groups?: decline to answer Panel score (0-1 are the most socially isolated patients): 2 What type of physical activity do you participate in: walking Duration: 15-30 minutes/day Frequency: 3-4 times per week Jessica/Scientology: Islam Special jessica needs: No Seatbelt use: always Helmet use: No Drive intox or ride w/intox emergency medical technician/driver: No Do you feel safe at home: Yes Do you feel safe in your relationship?: Yes
[2023-10-22 13:57] LABS: ALT 27 U/L (16-63); AST 23 U/L (15-37); Albumin 4.3 g/dL (3.4-5.0); Alkaline Phosphatase 68 U/L (46-116); Anion Gap 11.2 mmol/L (3-11); BUN 25 mg/dL (7-18); Bilirubin, Total 1.07 mg/dL (0.2-1.0); CO2 26.8 mmol/L (21.0-32.0); CREATININE 1.3 mg/dL (0.70-1.30); Calcium 9.3 mg/dL (8.5-10.1); Chloride 104 mmol/L (98-107); Estimated GFR 56.93 (mL/min/1.73m2); Glucose 122 mg/dL (74-106); Lipase 29 U/L (16-77); Potassium 3.3 mmol/L (3.5-5.1); Sodium 142 mmol/L (136-145); Total Protein 7.6 g/dL (6.4-8.2); Troponin I < 50 ng/L (< or =60)
== END 2023-10-22 14:55 | disposition home or self-care (01) ==
PROVIDERS: Emergency Provider Emergency Medicine; PCP Nurse Practitioner Family
DX: R07.9 Chest pain, unspecified (principal); I10 Essential (primary) hypertension; E78.5 Hyperlipidemia, unspecified; E11.9 Type 2 diabetes mellitus without complications; Z79.82 Long term (current) use of aspirin; Z79.84 Long term (current) use of oral hypoglycemic drugs
CPT/HCPCS: 80053; 83690; 93005; 99285; 71046; 83735; 84484; 85025; 93010; 99284

== ENCOUNTER 2023-10-22 20:31 | Outpatient (REF) | payer MEDICARE, SELFPAY ==
[2023-10-22 20:54] LABS: Anion Gap 9.6 mmol/L (3-11); BUN 25 mg/dL (7-18); CO2 29.4 mmol/L (21.0-32.0); CREATININE 1.3 mg/dL (0.70-1.30); Calcium 9.3 mg/dL (8.5-10.1); Calculated LDL 71 mg/dL (<100); Chloride 101 mmol/L (98-107); Cholesterol 143 mg/dL (<200); Estimated GFR 56.93 (mL/min/1.73m2); Glucose 115 mg/dL (74-106); HDL Cholesterol 49 mg/dL (40-60); Sodium 140 mmol/L (136-145); Triglyceride 117 mg/dL (<150)
== END 2023-10-22 20:32 | disposition home or self-care (01) ==
LOC: LBN 20:31
PROVIDERS: PCP Nurse Practitioner Family; Visit Provider Nurse Practitioner Family
DX: I10 Essential (primary) hypertension (principal); E78.5 Hyperlipidemia, unspecified
CPT/HCPCS: 80048; 80061

== ENCOUNTER 2023-10-23 20:14 | Emergency (ER) | payer MEDICARE, SELFPAY ==
[2023-10-23] VITALS (16 sets, daily range): BP systolic 119–159; BP diastolic 79–84; PULSE 64–82; RESP 12–41; TEMP 36.9; O2SAT 96
--- NOTE | 2023-10-23 20:15 | RT.EKG_ITS ---
APPROVED REPORT Exam: Resting ECG Reason for Exam: chest pain Patient Location: E HR:75 bpm ECG Measurements Heart Rate 75 AXIS MN 178 P 59 QRSd 91 QRS -21 QT 401 T 19 QTc 448 Conclusion Sinus rhythm...normal P axis, V-rate 60- 99 Narrow complex normal sinus rhythm at a rate of 75. Left axis deviation no signs of LVH. Intervals within normal limits. No ST segment abnormalities. T wave flattening in V2. Compared to prior EKG dated yesterday T wave flattening in V2 appears slightly more pronounced. No ST segment abnormalitie s. No acute injury pattern.
--- NOTE | 2023-10-23 20:23 | W.ED.GENAD ---
Discharge Plan Disposition Patient Disposition: Home Discharge Details Clinical Impression: Chest pain, unspecified Primary Care Provider: Brady Lynn ED Provider: Tono Hale Home Meds and New Rx's Prescriptions: Continued aspirin [Adult Low Dose Aspirin] 81 mg tablet,delayed release (DR/EC) 81 mg PO DAILY Qty: 90 3RF nitroglycerin 0.4 mg tablet, sublingual 0.4 mg sublingual Q5M PRN (Reason: chest pain) Qty: 14 0RF Rx Instructions: Take 1 tab at onset of symptoms, repeat every 5 minutes x 3 doses if chest pain persists pravastatin 20 mg tablet 20 mg PO DAILY Qty: 90 12RF metformin 500 mg tablet 500 mg PO DAILY Qty: 90 4RF hydrochlorothiazide 25 mg tablet 25 mg PO DAILY Qty: 90 3RF tamsulosin [Flomax] 0.4 mg capsule 0.4 mg PO HS Qty: 90 3RF Discharge Instructions Instructions: Chest Pain, Adult ED Additional Instructions: You are seen in the emergency department for your chest pain. Your blood work showed no sign of heart attack. Please return to the emergency department as we discussed if you develop recurrent pain nausea vomiting or any shortness of breath. Otherwise please follow-up with your primary care provider next week. HPI General Date/Time Provider Initiated Documentation: 10/23/23 20:23. HPI Narrative: MDM This is an overall very well-appearing normothermic and not tachycardic 77-year-old diabetic with increased fatigue and intermittent left-sided chest pain for which patient will undergo evaluation for ACS versus PE. No pain out of proportion to suggest necrotizing soft tissue infection. No trauma to the chest and equal breath sounds without pneumothorax. No rash to chest to suggest zoster. No tearing quality to suggest aortic dissection. No vomiting to suggest increased risk for esophageal rupture. Not hypotensive nor a dialysis patient so doubt tamponade. No cough to suggest pneumonia. Given no shortness of breath and no lower extremity edema I was not suspicious for acute heart failure. No epigastric tenderness to suggest pancreatitis. No right upper quadrant tenderness to suggest acute cholecystitis. 9:57 PM Negative troponin. Negative age-adjusted D-dimer. Comprehensive metabolic panel showing very mild hypokalemia. Mild hyperglycemia but no anion gap normal bicarbonate??not consistent with DKA. Normal LFTs. No PETER. CBC lacks anemia thrombocytopenia and leukocytosis. Normal reassuring lipase. I met with the patient and his son. His pain had resolved. I offered hospitalization but the patient requested to be discharged home. I advised that he should return to the ED if he developed any fevers cough syncope chest pain associated diaphoresis or chest pain that radiated to his jaw. He understood his return indications and was discharged with an empiric trial of expectant outpatient management. Chronic conditions affecting the care of the patient: Diabetes History obtained from an outside historian: N/A External record review: N/A Diagnostic interpretations performed by me: Per my independent interpretation chest x-ray shows: No acute cardiopulmonary process Per my independent interpretation EKG shows: Narrow complex normal sinus rhythm at a rate of 75. Left axis deviation no signs of LVH. Intervals within normal limits. No ST segment abnormalities. T wave flattening in V2. Compared to prior EKG dated yesterday T wave flattening in V2 appears slightly more pronounced. No ST segment abnormalities. No acute injury pattern. ]Medications: N/A Social determinants of health affecting disposition: N/A Management discussed with: N/A Treatment/interventions considered: N/A Response to therapies provided: N/A HPI This is a 77-year-old diabetic with hypertension arrived to the emergency department via private vehicle in the setting of increased fatigue and recurrent chest pain. Patient was seen in the emergency department yesterday with similar complaints. He says that he is aching nonradiating pain in the center of his chest. He denies any pressure. He denies exacerbators and alleviators. He does not feel short of breath however has noted some dyspnea on exertion. He denies routine tobacco, ethanol, and illicits. He has had no fevers or abdominal pain. He has a history of diabetes hypertension but not hyperlipidemia. He is never had a PE nor DVT. He denies routine tobacco, ethanol, and illicits. He has not taken any recent falls. Exam: General: Well-appearing in no acute distress speaking in complete sentences. Head: Normocephalic, atraumatic. Eye: Extraocular eye movements intact. No conjunctival injection. No scleral icterus. Ear, nose, mouth, throat: Grossly normal inspection. Normal voice, handling secretions normally. Neck: Trachea midline. Cardiovascular: Well-perfused distal extremities. Regular rate and rhythm. Respiratory: Nonlabored respiration. Clear lungs bilaterally Gastrointestinal: Nondistended abdomen. Soft nontender Musculoskeletal: No edema. Moving all 4 extremities spontaneously. Skin: Normal for age and race, grossly normal temperature and turgor. No acute rash. Neurologic: Alert and appropriate, no apparent acute deficits. Psychiatric: Mood and manner are appropriate. Grooming and personal hygiene are appropriate. Related Data Home Medications Medication Instructions Recorded Confirmed aspirin 81 mg tablet,delayed 81 mg PO DAILY #90 tabs 01/06/20 10/23/23 release (Adult Low Dose Aspirin) hydrochlorothiazide 25 mg tablet 25 mg PO DAILY #90 tab-caps 08/18/23 10/23/23 tamsulosin 0.4 mg capsule (Flomax) 0.4 mg PO HS #90 tabs 09/18/23 10/23/23 metformin 500 mg tablet 500 mg PO DAILY #90 tabs 10/22/23 10/23/23 nitroglycerin 0.4 mg sublingual 0.4 mg sublingual Q5M PRN chest 10/22/23 10/23/23 tablet pain #14 tabs pravastatin 20 mg tablet 20 mg PO DAILY #90 tabs 10/22/23 10/23/23 Previous Rx's Medication Instructions Recorded aspirin 81 mg tablet,delayed 81 mg PO DAILY #90 tabs 01/06/20 release (Adult Low Dose Aspirin) hydrochlorothiazide 25 mg tablet 25 mg PO DAILY #90 tab-caps 08/18/23 tamsulosin 0.4 mg capsule (Flomax) 0.4 mg PO HS #90 tabs 09/18/23 metformin 500 mg tablet 500 mg PO DAILY #90 tabs 10/22/23 nitroglycerin 0.4 mg sublingual 0.4 mg sublingual Q5M PRN chest 10/22/23 tablet pain #14 tabs pravastatin 20 mg tablet 20 mg PO DAILY #90 tabs 10/22/23 Allergies Allergy/AdvReac Type Severity Reaction Status Date / Time Penicillins Allergy Unknown SKIN RASH Verified 10/22/23 13:36 metronidazole AdvReac Intermediate Nausea Verified 10/22/23 13:36 General Stated Complaint: GenMedical MICHELE: 3 Course Vital Signs Vital signs: Vital Signs Temperature 36.9 C 10/23/23 20:19 Pulse 74 10/23/23 20:19 Respiratory Rate 15 10/23/23 20:19 Blood Pressure 159/79 H 10/23/23 20:19 Pulse Oximetry 96 10/23/23 20:19 Temperature 36.9 C 10/23/23 20:19 Temperature Source Oral 10/23/23 20:19 Pulse 74 10/23/23 20:19 Respiratory Rate 15 10/23/23 20:19 Blood Pressure 159/79 H 10/23/23 20:19 Blood Pressure Position Sitting 10/23/23 20:19 Pulse Oximetry 96 10/23/23 20:19 Oxygen Delivery Method Room Air 10/23/23 20:19 Oxygen Flow Rate 0 10/23/23 20:19 Medical Decision Making Quality:SDOH Health Related Social Needs: No Data to Display PFSH All Active Problems (Updated 10/23/23 @ 22:13 by Tono Hale MD) Chest pain, unspecified (Acute) Chest pain (Acute) Shortness of breath on exertion (Acute) Diabetes type 2, controlled (Acute) Right carpal tunnel syndrome (Acute) Hyperlipidemia (Acute) Hypertension (Chronic) Diverticulosis (Acute) 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 (Acute) History of appendectomy (Acute) H/O right inguinal hernia repair (Acute 10/12/13) Microhematuria (Acute 10/12/13) Raised prostate specific antigen (Acute) History of rheumatic fever (Acute) Hemorrhoid (Acute 10/12/13) Hearing impairment (Acute 10/20/14) Erectile disorder, generalized, mild (Acute 10/20/14) BPH without urinary obstruction (Acute) Medical History (Updated 10/23/23 @ 22:13 by Tono Hale MD) Encounter for removal of sutures Laceration of arm, left, multiple sites Fall Right knee pain Prediabetes Dog bite Hypertension (10/11/13) Surgical History History of tonsillectomy Colonoscopy - MAC 01/19/19, Dr Bebe Ann, diverticulitis, repeat 10 years. 2007-NEG 01/19/19 - Diverticulosis Appendectomy Family History Mother Diabetes Heart disease Father , 75 Essential hypertension Cancer Brother No problems noted. Maternal Grandfather Heart disease Maternal Grandmother , 92 Heart disease Paternal Grandmother , 65 Stroke Brother Essential hypertension Son No problems noted. Son No problems noted. Brother No problems noted. Social History Smoking/Tobacco Use Status: Never Second Hand Exposure: Yes Smoking risk assessment performed?: Yes Alcohol Intake: never Drug use: Never Substance use type: does not use Caregiver/Support person: No Household members: spouse Communication Needs: Corrective Lenses Do you need help understanding health information?: Never Pets and animals: Yes Pets and animals: dog(s) Sexually active: Yes Do you think of yourself as: straight/heterosexual Current gender identity: male What is your relationship status?: How often do you talk on the phone with friends or family?: three or more times per week How often do you get together with friends or relatives?: three or more times per week How often do you attend pentecostalism or christian services?: decline to answer Do you belong to any clubs or organized social groups?: decline to answer Panel score (0-1 are the most socially isolated patients): 2 What type of physical activity do you participate in: walking Duration: 15-30 minutes/day Frequency: 3-4 times per week Jessica/Roman Catholic: [employer] Special jessica needs: No Seatbelt use: always Helmet use: No Drive intox or ride w/intox cdl bulk driver: No Do you feel safe at home: Yes Do you feel safe in your relationship?: Yes
--- NOTE | 2023-10-23 20:30 | DI.RAD_ITS ---
Exam(s) XR CHEST 1V IN DI DEPT EXAM: XR CHEST 1V IN DI DEPT CLINICAL HISTORY: Chest pain TECHNIQUE: 2D digital imaging was performed. COMPARISON: No exams were available for comparison FINDINGS: LUNGS: Clear. No pleural abnormality seen. HEART: Normal size. AORTA: Tortuous. BONES: Unremarkable for age. Soft tissues: Unremarkable. IMPRESSION: No acute findings. DATA REPOSITORY: RADIATION DOSE DELIVERED:
[2023-10-23 20:43] LABS: Abs Immature Grans 0.02 10^3/uL (0.0-0.06); Absolute Basophil Count 0.03 10^3/uL (0.0-0.2); Absolute Eosinophil Count 0.26 10^3/uL (0.0-0.7); Absolute Lymphocyte Count 2.48 10^3/uL (1.2-3.4); Absolute Monocyte Count 0.76 10^3/uL (0.1-0.8); Basophils % 0.4 %; Eosinophils % 3.3 %; HCT 45.5 % (40.0-50.0); HGB 15.2 g/dL (13.5-17.5); Immature Grans % 0.3 %; Lymphocytes % 31.2 %; MCH 29.1 pg (27.0-33.0); MCHC 33.4 % (32.0-36.0); MCV 87 fL (80-95); MPV 9.4 fL (8.0-11.0); Monocytes % 9.6 %; Neutrophils % 55.2 %; Platelet Count 244 10^3/uL (130-400); RBC 5.23 10^6/uL (4.36-5.78); RDW 12.6 % (11.8-14.1); RDW-SD 40.1 fL; WBC 7.95 10^3/uL (4.4-10.8)
[2023-10-23 20:53] LABS: Lipase 32 U/L (16-77)
[2023-10-23 21:02] LABS: ALT 26 U/L (16-63); AST 19 U/L (15-37); Albumin 4.1 g/dL (3.4-5.0); Alkaline Phosphatase 80 U/L (46-116); Anion Gap 10.7 mmol/L (3-11); BUN 24 mg/dL (7-18); Bilirubin, Total 0.55 mg/dL (0.2-1.0); CO2 29.3 mmol/L (21.0-32.0); CREATININE 1.2 mg/dL (0.70-1.30); Calcium 9.1 mg/dL (8.5-10.1); Chloride 104 mmol/L (98-107); Estimated GFR 62.67 (mL/min/1.73m2); Glucose 108 mg/dL (74-106); Potassium 3.1 mmol/L (3.5-5.1); Sodium 144 mmol/L (136-145); Total Protein 7.4 g/dL (6.4-8.2); Troponin I < 50 ng/L (< or =60)
[2023-10-23 21:16] LABS: D-Dimer 524 ng/mlFEU (<500)
--- NOTE | 2023-10-23 22:26 | DI.VRAD_ITS ---
PROCEDURE INFORMATION: Exam: XR Chest Exam date and time: 10/23/2023 8:51 PM Age: 77 years old Clinical indication: Chest wall pain TECHNIQUE: Imaging protocol: Radiologic exam of the chest. Views: 1 view. COMPARISON: CR XR CHEST 2V PA LATERAL 10/22/2023 2:10 PM FINDINGS: Tubes, catheters and devices: Cardiac leads superimposed over the chest. Lungs: No alveolar infiltrate. Pleural spaces: No pneumothorax. No pleural fluid collection. Heart/Mediastinum: Normal heart size. Vasculature: Ectasias of the thoracic aorta. Bones/joints: Spinal degenerative changes. IMPRESSION: No acute infiltrate or congestive changes. Dictated and Authenticated by: Chino Alamo MD. Ordering:SARAVANAN Power MD
--- NOTE | 2023-10-29 10:01 | NUR.NOTE ---
Accessed chart to reconcile EKG's in [facility] and order EKG's. Duplicate order cancelled. Nursing Note:
== END 2023-10-23 22:20 | disposition home or self-care (01) ==
PROVIDERS: Emergency Provider Emergency Medicine; PCP Nurse Practitioner Family
DX: R53.83 Other fatigue (principal); R07.9 Chest pain, unspecified; E87.6 Hypokalemia; I10 Essential (primary) hypertension; E11.9 Type 2 diabetes mellitus without complications; Z79.82 Long term (current) use of aspirin; Z79.84 Long term (current) use of oral hypoglycemic drugs
CPT/HCPCS: 36415; 80053; 83690; 93005; 99285; 71045; 84484; 85025; 85379; 93010; 99284

== ENCOUNTER → 2023-11-02 01:50 | Outpatient (CLI) | payer MEDICARE, SELFPAY ==
--- NOTE | 2023-11-02 06:00 | ETT_ITS ---
APPROVED REPORT Exam: Exercise Treadmill Patient Location: Out-Patient Room/Bed: Stress Nurse: Simi Tillman RN and Sarah Akhtar RN Ordering Provider:KEITH GALLO, Contact Number: [phone] BMI: 28.08 Baseline Rhythm: Sinus Rhythm. Indications: SOB on Exertion; Chest Tightness. Medical History Medical History: Diabetes Mellitus Type 2; Hyperlipidemia; Hypertension; Shortness of Breath; Hx of R heumatic Fever. Cardiac Medications: Aspirin; Hydrochlorothiazide; Metformin. Allergies: Penicillins; Metronidazole; Nitroglycerin; Pravastatin; Tamsulosin. Cardiac Risk Factors: Family Hx; Hyperlipidemia; Hypertension; Diabetes. Previous Cardiac Procedures: None. Pretest Chest Pain Characteristics: None. Exercise History: Physically active. Physical Disabilities: None. Lung Sounds: Clear bilaterally throughout, anterior and posterior. Heart Sounds: S1 and S2 auscultated. Stress Test Details Test: Exercise stress testing was performed using a Lnius protocol. Rest Stress HR Resting HR Supine: 67 bpm Max Heart Rate (APMHR): 143 bpm Resting HR Standin bpm Target HR (85% APMHR): 122 bpm Max HR Achieved: 133 bpm % of APMHR: 93 Recovery HR: 71 bpm HR response to stress: Normal HR response to stress. BP Resting BP Supine: 140/80 mmHg Resting BP Standin/80 mmHg Max BP: 158/60 mmHg Recovery BP: 122/84 mmHg BP response to stress: Normal blood pressure response to stress. ECG Resting ECG: Sinus Rhythm. Ectopy: None. Stress ECG: Sinus Tachycardia. ST Change: No significant ST segment changes noted. Arrhythmia: None. Recovery ECG: Sinus Rhythm. Recovery ST Change: No significant ST segment changes noted. Recovery Arrhythmia: Rare PAC. Clinical Reason for Termination: Target HR Achieved Stress Symptoms: None. Exercise duration: 02 min54 sec Highest Stage Reached: Stage 1: 1.7 mph at 10% grade. Exercise capacity: 4.64 METs Angina Score: None Rate Pressure Product: [id number] Stress ECG Conclusion 1. Resting electrocardiogram was normal 2. Patient exercised on the Linus protocol and completed a load of 4.64 METS 3. Normal heart rate and blood pressure response to exercise. Patient achieved 93% of predicted hear t rate for age 4. There was no electrocardiographic evidence of myocardial ischemia 5. There were no significant dysrhythmias Stress Test Summary STAGE Time (mins) Speed (mph) Grade (%) HR BP SpO2 SYMPTOMS METS Supine 67 140/80 95 Standing 71 136/80 95 1 3 1.7 10 128 150/64 4.5 2 6 2.5 12 133 7 1 min recovery 90 158/60 95 3 min recovery 74 144/82 96 6 min recovery 71 122/84 97
== END ==
PROVIDERS: PCP Nurse Practitioner Family; Visit Provider Nurse Practitioner Family
DX: R06.02 Shortness of breath (principal); R07.89 Other chest pain
CPT/HCPCS: 93016; 93018; 93017

== ENCOUNTER → 2023-11-10 01:36 | Outpatient (CLI) | payer MEDICARE, SELFPAY ==
--- NOTE | 2023-11-10 06:00 | DI.US_ITS ---
APPROVED REPORT EXAM: Comprehensive 2D, Doppler, and color-flow Echocardiogram Patient Location: Out-Patient Insulation Cutter And Former: Rosetta Lee RDCS (AE) Indications: Chest tightness, H/X of murmur, SOB on exertion Other Information Study Quality: Good Conclusion Normal left ventricular size and wall thickness. Ejection fraction is 60%. Wall motion is normal Normal right ventricular size and function Both atria are normal in size Trileaflet aortic valve with trace regurgitation Estimated right ventricular systolic pressure is 20 mmHg Ascending aorta measures 3.64 cm Wall motion Left Ventricle The left ventricle is normal size. The left ventricular systolic function is normal. The left ventric ular ejection fraction is within the normal range. There is normal left ventricular wall thickness. T here is normal LV segmental wall motion. There is no ventricular septal defect visualized. LVEF is 60 %. Right Ventricle The right ventricle is normal size. The right ventricular systolic function is normal. Atria The left atrium size is normal. The right atrium size is normal. The interatrial septum is intact wit h no evidence for an atrial septal defect. Aortic Valve The aortic valve is normal in structure. Aortic valve is trileaflet. There is no aortic valvular deanna nosis. Trace aortic regurgitation. Mitral Valve The mitral valve is normal in structure. No evidence of mitral valve stenosis. Trace mitral regurgita tion. Tricuspid Valve The tricuspid valve is normal in structure. There is no tricuspid valve stenosis. Trace tricuspid reg urgitation. The RVSP is 19.9 mmHg. Pulmonic Valve The pulmonary valve is normal in structure. There is no pulmonic valvular stenosis. Trace pulmonic re gurgitation. Great Vessels The aortic root is normal in size. The ascending aorta is mildly dilated. Aortic arch is normal in ca liber. IVC is normal in size and collapses >50% with inspiration. Pericardium There is no pericardial effusion. 2D Dimensions IVSD d PLAX 0.90 cm M: 0.6-1.2 Ao Root d 3.42 cm M: 3.1 - 3.7 LVPW d PLAX 0.93 cm M: 0.6 - 1.2 Ao Asc Diam d 3.68 cm M: 2.6 - 3.4 LVID d PLAX 4.50 cm M: 4.2 - 5.8 LVDs 3.06 cm M: 2.5 - 4.0 LV EF Teichholz 60.4 % FS 32.08 % LV EDV (Teich) 92.5 mL LV ESV (Teich) 36.6 mL M-Mode TAPSE 2.76 cm (M/F) >1.7 Auto EF LV EDV A4C 97.4 mL LV EDV A2C 84.9 mL LV EDV BP 92.5 mL LV ESV A4C 39.6 mL LV ESV A2C 35.6 mL LV ESV BP 38.3 mL LVEF(%) A4C 59.3 % LVEF(%) A2C 58.0 % LVEF(%) BP 58.6 % LV SV A4C 57.8 ml LV SV A2C 49.3 ml LV SV BP 54.3 ml LV CO A4C 3.6 L/min LV CO A2C 3.2 L/min LV CO BP 3.4 L/min HR A4C 62.50 BPM HR A2C 64.15 BPM LV EDV Index (BP) LA Volume LA Length A4C 4.9 cm LA Length A2C 5.4 cm LA Area A4C s 13.45 cm2 LA Area A2C s 15.31 cm2 LA Vol A4C A-L 31.54 mL LA Vol A2C A-L 36.92 mL LA Vol Biplane A-L 35.9 mL LA Vol/BSA A4C A-L LA Vol/BSA A2C A-L LA Vol/BSA BP A-L 18.8 mL/m2 LA Vol A4C MOD 30.1 mL LA Vol A2C MOD 34.6 mL LA Vol BP MOD 33.8 mL RA Volume RA Area A4C 12.4 cm2 RA ESV A4C (A-L) 28.2mL RA Vol/BSA A4C A-L RA Length A4C 4.6 cm RA ESV A4C (MOD) 27.6mL LV Diastology MV E' medial 0.056 (>0.07 m/s) MV E Vmax 0.81 (0.4-1.3 m/s) MV E/E' MED 14.47 (<14) MV A Vmax 0.90 (0.4-1.3 m/s) MV E' lateral 0.067 (>0.1 m/s) E/A Ratio 0.9 MV E/E' LAT 12.14 (<14) MV E' Average 0.061 m/s MV E/E'(average) 13.20 Aortic Valve AoV Vmax 1.25 m/s LVOT Vmax 0.97 m/s AoV Peak Grad 6.3 mmHg LVOT Peak Grad 3.7 mmHg AoV Area (Vmax) 2.13 cm2 LVOT VTI 0.234 m AoV VTI 0.329 m LVOT Mean Grad 1.9 mmHg AoV Mean Chris. 0.89 m/s LVOT SV 64.71 mL AoV Mean Grad 3.6 mmHg LVOT Diam s 1.85 cm AoV Area (VTI) 1.97 cm2 Velocity Ratio 0.78 Mitral Valve MV DT 217 (160-240 msec) MV Vmax TIPS 0.86 m/s MV Mean Grad 1.3 (<2mmHg) MV VTI 0.280 m Pulmonary Valve PV Vmax 0.95 (0.5-1.5 m/s) RVOT Vmax 0.52 m/s PV Peak Grad 3.6 mmHg RVOT Peak Gr. 1.1 mmHg PV Mean Chris 0.63 m/s RVOT VTI 0.136 m PV Mean Grad 1.8 mmHg RVOT Mean Gr. 0.7 mmHg Tricuspid Valve RA Pressure 3.00 mmHg TR Vmax 2.05 m/s TV S' 0.14 m/s TR Peak Grad 16.8 mmHg RVSP (TR) 19.9 mmHg
== END ==
PROVIDERS: PCP Nurse Practitioner Family; Visit Provider Nurse Practitioner Family
DX: R06.02 Shortness of breath (principal)
CPT/HCPCS: 93306

== ENCOUNTER 2024-04-26 13:40 | Outpatient (CLI) | payer MEDICARE, SELFPAY ==
--- NOTE | 2024-04-26 09:45 | DI.RAD_ITS ---
Exam(s) XR SHOULDER RT COMPLETE 2+V EXAM: XR SHOULDER RT COMPLETE 2+V CLINICAL HISTORY: hurts to split and move firewood, rt shoulder pain, [id number]. TECHNIQUE: 2D digital imaging was performed. Five views. COMPARISON: No exams were available for comparison FINDINGS: BONES: No acute fracture is present. No bony destructive lesion is seen. JOINTS: No dislocation present. Glenohumeral joint space is maintained. There is mild spurring at t he glenoid. Minimal degenerative changes of the AC joint. SOFT TISSUE: Normal. IMPRESSION: Mild degenerative changes. DATA REPOSITORY: RADIATION DOSE DELIVERED:
== END 2024-04-26 14:00 ==
LOC: DI 13:41
PROVIDERS: PCP Nurse Practitioner Family; Visit Provider Nurse Practitioner Family
DX: M25.511 Pain in right shoulder (principal)
CPT/HCPCS: 73030

== ENCOUNTER 2024-10-18 03:32 | Outpatient (CLI) | payer MEDICARE, SELFPAY ==
[2024-10-18 13:04] LABS: ALT 28 U/L (16-63); AST 21 U/L (15-37); Albumin 4.1 g/dL (3.4-5.0); Alkaline Phosphatase 61 U/L (46-116); Anion Gap 8.6 mmol/L (3-11); BUN 21 mg/dL (7-18); Bilirubin, Total 1.2 mg/dL (0.2-1.0); CO2 28.4 mmol/L (21.0-32.0); CREATININE 1.2 mg/dL (0.70-1.30); Calcium 8.9 mg/dL (8.5-10.1); Calculated LDL 69 mg/dL (<100); Chloride 103 mmol/L (98-107); Cholesterol 132 mg/dL (<200); Estimated GFR 62.29 (mL/min/1.73m2); Glucose 141 mg/dL (74-106); HDL Cholesterol 50 mg/dL (>or=40); Potassium 3.6 mmol/L (3.5-5.1); Sodium 140 mmol/L (136-145); Total Protein 7.2 g/dL (6.4-8.2); Triglyceride 68 mg/dL (<150)
== END 2024-10-18 03:33 | disposition home or self-care (01) ==
LOC: LOS 03:32
PROVIDERS: PCP Nurse Practitioner Family; Visit Provider Nurse Practitioner Family
DX: E78.5 Hyperlipidemia, unspecified (principal); N40.0 Benign prostatic hyperplasia without lower urinary tract symptoms
CPT/HCPCS: 36415; 80053; 80061; 84153